=== PATIENT | female | born 1965 | race American Indian/Alaskan Native ===

== ENCOUNTER 2017-03-24 07:23 | Emergency (ER) | payer BC, OTHER ==
[2017-03-24 11:39] LABS: Bacteria,Urine 1+ /HPF (Negative); Bilirubin,Urine NEG (Negative); Blood,Urine NEG (Negative); Color,Urine Yellow (Yellow); Mucus,Urine FEW /HPF; Nitrite,Urine NEG (Negative); Protein,Urine <15 mg/dL mg/dL (Negative); Urobilinogen,Urine < 2.0 mg/dL (<2.0)
--- NOTE | 2017-03-24 11:45 | Cat Scan Report ---
CT HEAD WITHOUT CONTRAST: 03/24/17 07:23:00 CLINICAL: Neck stiffness and headache. Recent URI.. TECHNIQUE: 2.5-mm noncontrast scans. COMPARISON:None FINDINGS: The ventricles and sulci are normal for age.Left frontal lobe white matter and left basal ganglia subtle hypodensities. No other abnormal signal. No mass or mass effect. No hemorrhage, edema or extra-axial collection. Moderate left maxillary sinus mucoperiosteal thickening. Sinuses are otherwise clear. Normal orbits and soft tissues. The calvarium and skull base are intact. IMPRESSION: Probable chronic left frontal lobe white matter and left basal ganglia microvascular ischemic change. Mild left maxillary sinusitis. No other acute change.
[2017-03-24 11:47] LABS: Basophils # (Auto) 0.1 K/mm3 (0.0-0.1); Basophils % (Auto) 0.9 % (0.0-1.8); Eosinophils # (Auto) 0.1 K/mm3 (0.0-0.4); Eosinophils % (Auto) 1.4 % (0.0-4.3); Hematocrit 40.4 % (30.3-42.9); Hemoglobin 13.4 gm/dl (10.1-14.3); Lymphocytes # (Auto) 2.5 K/mm3 (1.2-5.4); Lymphocytes % (Auto) 38.2 % (13.4-35.0); Mean Corpuscular HGB Conc 33 % (30-34); Mean Corpuscular Hemoglobin 32 pg (28-32); Mean Corpuscular Volume 96 fl (79-97); Monocytes # (Auto) 0.3 K/mm3 (0.0-0.8); Monocytes % (Auto) 4.5 % (0.0-7.3); Platelet Count 327 K/mm3 (140-440); Red Blood Count 4.19 M/mm3 (3.65-5.03); Red Cell Distribution Width 13.3 % (13.2-15.2)
--- NOTE | 2017-03-24 11:56 | Emergency Department Report ---
HPI - General Chief Complaint: Neck Pain/Injury Time Seen by Provider: 03/24/17 11:13 - HPI HPI: 52-year-old -[place] female comes in for complaint of neck pain 2-3 days that is starting to gradually increase her she cannot move her neck without excruciating pain. Patient reports that is sharp and increased with movement to the right or the left. She recently had the flu last week and still has a cough. She admits that she has chills no fever headache. She denies any recent injuries or trauma. She is currently on amoxicillin for upper respiratory infection. ED Past Medical Hx - Past Medical History Hx Diabetes: Yes - Social History Smoking Status: Never Smoker Substance Use Type: None - Medications Home Medications: Home Medications Medication Instructions Recorded Confirmed Last Taken Type metFORMIN [Glucophage] 500 mg PO BID 10/08/13 10/08/13 Unknown History Baclofen [Lioresal] 10 mg PO TID #30 tab 03/24/17 Unknown Rx Ibuprofen 600 mg PO Q8H #30 tablet 03/24/17 Unknown Rx Nitrofurantoin Monohyd/M-Cryst 100 mg PO BID 10 Days #20 capsule 03/24/17 Unknown Rx [Macrobid 100 mg Capsule] ED Review of Systems ROS: Stated complaint: STIFF NECK Other details as noted in HPI Constitutional: chills. denies: fever Eyes: denies: eye pain, eye discharge, vision change ENT: denies: ear pain, throat pain Respiratory: cough Cardiovascular: denies: chest pain, palpitations Endocrine: no symptoms reported Gastrointestinal: denies: abdominal pain, nausea, diarrhea Genitourinary: denies: urgency, dysuria, discharge Musculoskeletal: arthralgia (neck pain), myalgia (neck stiffness), other Skin: denies: rash, lesions Neurological: headache Psychiatric: denies: anxiety, depression Hematological/Lymphatic: denies: easy bleeding, easy bruising Physical Exam - Physical Exam Vital Signs: Vital Signs 03/24/17 03/24/17 08:18 08:26 Temperature 98.0 F 98.0 F Pulse Rate 64 64 Respiratory 18 Rate Blood Pressure 158/70 Blood Pressure 158/64 [Right] O2 Sat by Pulse 100 100 Oximetry General: GENERAL APPEARANCE: Well developed, well nourished, in no acute distress. SKIN: Inspection of the skin reveals no rashes, ulcerations or petechiae. HEENT: The sclerae were anicteric and conjunctivae were pink and moist. Extraocular movements were intact and pupils were equal, round, and reactive to light with normal accommodation. External inspection of the ears and nose showed no scars, lesions, or masses. Lips, teeth, and gums showed normal mucosa. The oral mucosa, hard and soft palate, tongue and posterior pharynx were normal. NECK: Supple and symmetric. There was no thyroid enlargement, and no tenderness , or masses were felt. Decreased range of motion secondary to pain. CHEST: Normal AP diameter and normal contour without any kyphoscoliosis. LUNGS: Auscultation of the lungs revealed normal breath sounds without any other adventitious sounds or rubs. CARDIOVASCULAR: There was a regular rate and rhythm without any murmurs, gallops , rubs. The carotid pulses were normal and 2+ bilaterally without bruits. Peripheral pulses were 2+ and symmetric. LYMPH NODES: No lymphadenopathy was appreciated in the neck, axillae or groin. MUSCULOSKELETAL: Gait was normal. There was no tenderness or effusions noted. Muscle strength and tone were normal. EXTREMITIES: No cyanosis, clubbing or edema. NEUROLOGIC: Alert and oriented x 3. Normal affect. Gait was normal. Normal deep tendon reflexes with no pathological reflexes. Sensation to touch was normal. With lifting legs pain and neck ED Course Vital Signs 03/24/17 03/24/17 08:18 08:26 Temperature 98.0 F 98.0 F Pulse Rate 64 64 Respiratory 18 Rate Blood Pressure 158/70 Blood Pressure 158/64 [Right] O2 Sat by Pulse 100 100 Oximetry ED Medical Decision Making - Lab Data Result diagrams: 03/24/17 11:14 03/24/17 11:14 - Radiology Data Radiology results: report reviewed, image reviewed FINDINGS: The ventricles and sulci are normal for age.Left frontal lobe white matter and left basal ganglia subtle hypodensities. No other abnormal signal. No mass or mass effect. No hemorrhage, edema or extra-axial collection. Moderate left maxillary sinus mucoperiosteal thickening. Sinuses are otherwise clear. Normal orbits and soft tissues. The calvarium and skull base are intact. IMPRESSION: Probable chronic left frontal lobe white matter and left basal ganglia microvascular ischemic change. Mild left maxillary sinusitis. No other acute change. Transcribed By: REF Dictated By: AARON SANCHEZ MD Electronically Authenticated By: AARON SANCHEZ MD Signed Date/Time: 03/24/17 1139 DD/ TD/TT: 03/24/17 113 - Medical Decision Making Patient has been evaluated by this provider fast track. CT was ordered for head as well as the neck. CBC CMP lactic acid. Pain medication ordered. Case was discussed with Dr. Silva. He reviewed CT results. Critical care attestation.: If time is entered above; I have spent that time in minutes in the direct care of this critically ill patient, excluding procedure time. ED Disposition Clinical Impression: Cervical adenopathy, Neck pain, acute UTI (urinary tract infection) Qualifiers: Urinary tract infection type: site unspecified Hematuria presence: without hematuria Qualified Code(s): N39.0 - Urinary tract infection, site not specified Disposition: TO HOME OR SELFCARE Is pt being admited?: No Does the pt Need Aspirin: No Condition: Stable Instructions: Urinary Tract Infection in Women (ED), Lymphadenopathy (ED) Additional Instructions: Please take medication as prescribed. Follow up with her primary care provider within 3-5 days. Please return to the emergency room if he spiked a fever. Please return to the emergency room if symptoms persist or gets worse. Prescriptions: Baclofen [Lioresal] 10 mg PO TID #30 tab Ibuprofen 600 mg PO Q8H #30 tablet Nitrofurantoin Monohyd/M-Cryst [Macrobid 100 mg Capsule] 100 mg PO BID 10 Days # 20 capsule Referrals: KALEB MCCORMACK MD [Primary Care Provider] - 3-5 Days Forms: Work/School Release Form(ED)
[2017-03-24] MEDS ORDERED: TORADOL IV ONE (12:01)
[2017-03-24 12:08] LABS: Alanine Aminotransferase 29 units/L (7-56); Albumin 4.6 g/dL (3.9-5); BUN/Creatinine Ratio 15; Blood Urea Nitrogen 9 mg/dL (7-17); Calcium 9.7 mg/dL (8.4-10.2); Hemolysis Index 40
--- NOTE | 2017-03-24 12:22 | Cat Scan Report ---
CT CERVICAL SPINE WITHOUT CONTRAST:03/24/17 07:23:00 CLINICAL: Neck pain stiffness. TECHNIQUE: Volumetric acquisition and 1.25-mm scan reconstructions without contrast. Sagittal and coronal reformats were performed. FINDINGS: Normal vertebral body height, alignment and disk spaces. No fracture or subluxation. No apparent disc protrusions or bulges. Bilateral shotty cervical chain lymph nodes. No abscess or fluid collection. Normal airway. Normal mastoid air cells. IMPRESSION: Bilateral shotty cervical chain lymph nodes and otherwise normal study.
[2017-03-24 13:48] VITALS: BP 140/80
== END 2017-03-24 13:49 | disposition home or self-care (01) ==
LOC: ED 07:23
DX: R59.0 Localized enlarged lymph nodes (principal); M54.2 Cervicalgia; N39.0 Urinary tract infection, site not specified; E11.9 Type 2 diabetes mellitus without complications
CPT/HCPCS: 36415; 70450; 72125; 80053; 81001; 82140; 85025; 96374; 99284; J1885

== ENCOUNTER 2017-03-26 08:30 | Emergency (ER) | payer BC ==
[2017-03-26] MEDS ORDERED: NACL 0.9% 1000 ML 1,000 ML IV ONE (13:01)
[2017-03-26] MEDS ORDERED: TORADOL IV ONE (13:01)
[2017-03-26] MEDS ORDERED: ZOFRAN IV ONE (13:01)
[2017-03-26] MEDS ORDERED: MORPHINE IV ONE (13:01)
--- NOTE | 2017-03-26 13:08 | Emergency Department Report ---
<RAFAELA GILBERT - Last Filed: 03/26/17 20:02> ED Headache HPI - General Chief Complaint: Headache Stated Complaint: NECK PAIN Time Seen by Provider: 03/26/17 12:50 Source: patient, old records Exam Limitations: no limitations - History of Present Illness Initial Comments: 52-year-old female with a past medical history diabetes presents complaining of persistent posterior neck pain and now a posterior headache. Patient has had posterior neck pain since 14 presented to the ER on March 24. She had a CT head and cervical spine performed. Her diagnosis was pain, UTI, cervical adenopathy. Patient reports prior to presented to the ER she is being treated with amoxicillin for URI/flu symptoms. She denies any current fever but has had intermittent chills. Posterior neck pain and posterior headache are sharp, stabbing, constant, worse with palpation and movement. Positive photophobia. Positive nausea. No vomiting. Patient take ibuprofen and baclofen without improvement. Also currently on Macrobid for recently diagnosed UTI. Pt developed chest pain while in ed Allergies/Adverse Reactions: Allergies No Known Allergies Allergy (Verified 10/08/13 22:40) Home Medications: Ambulatory Orders metFORMIN [Glucophage] 500 mg PO BID 10/08/13 Baclofen [Lioresal] 10 mg PO TID #30 tab 03/24/17 Ibuprofen 600 mg PO Q8H #30 tablet 03/24/17 Nitrofurantoin Monohyd/M-Cryst [Macrobid 100 mg Capsule] 100 mg PO BID 10 Days # 20 capsule 03/24/17 HYDROcodone/APAP 5-325 [[place] 5/325] 1 each PO Q6HR PRN #20 tablet 03/26/17 Ondansetron [Zofran Odt] 4 mg PO Q8HR PRN #20 tab.rapdis 03/26/17 ED Review of Systems ROS: Stated complaint: NECK PAIN Other details as noted in HPI Comment: All other systems reviewed and negative Other: Constitutional: as per hpi Eyes: No eye pain visual changes or discharge ENT: No ear pain or throat pain Neck: as per hpi Respiratory: Denies cough wheezing shortness of breath Cardiovascular: Denies chest pain, palpitations, syncope GI: Denies abdominal pain, nausea, vomiting, diarrhea : Denies dysuria Musculoskeletal: Denies back pain Skin: Denies rash, lesions, erythema Neurologic: Denies headache, numbness, weakness Psychiatric: Denies suicidal ideation, hallucinations ED Past Medical Hx - Past Medical History Previous Medical History?: Yes Hx Diabetes: Yes - Surgical History Past Surgical History?: No - Social History Smoking Status: Never Smoker Substance Use Type: None - Medications Home Medications: Home Medications Medication Instructions Recorded Confirmed Last Taken Type metFORMIN [Glucophage] 500 mg PO BID 10/08/13 03/26/17 Unknown History Baclofen [Lioresal] 10 mg PO TID #30 tab 03/24/17 03/26/17 Unknown Rx Ibuprofen 600 mg PO Q8H #30 tablet 03/24/17 03/26/17 Unknown Rx Nitrofurantoin Monohyd/M-Cryst 100 mg PO BID 10 Days #20 capsule 03/24/17 Unknown Rx [Macrobid 100 mg Capsule] HYDROcodone/APAP 5-325 [[place] 1 each PO Q6HR PRN #20 tablet 03/26/17 Unknown Rx 5/325] Ondansetron [Zofran Odt] 4 mg PO Q8HR PRN #20 tab.rapdis 03/26/17 Unknown Rx ED Physical Exam - General Limitations: No Limitations - Other Other exam information: General: No limitations, patient is alert in no acute distress Head exam: Atraumatic, normocephalic Eyes exam: Normal appearance, pupils equal reactive to light, extraocular movements intact ENT: Moist mucous membrane, no posterior exudate Neck exam: Normal inspection, full range of motion, posterior neck pain with tenderness to the bilateral paraspinal muscles. Pain with flexion and extension of neck Respiratory exam: Clear to auscultation bilateral, no wheezes, rales, crackles Cardiovascular: Normal rate and rhythm Abdomen: Soft, nondistended, and nontender, with normal bowel sounds, no rebound, or guarding Extremity: Full range of motion normal inspection no deformity Back: Normal Inspection, full range of motion, no tenderness Neurologic: Alert, oriented x3, cranial nerves intact, no motor or sensory deficit Psychiatric: normal affect, normal mood Skin: Warm, dry, intact ED Course Vital Signs 03/26/17 03/26/17 03/26/17 08:49 12:56 15:48 Temperature 98.3 F Pulse Rate 72 67 70 Respiratory 16 16 16 Rate Blood Pressure 127/97 Blood Pressure 163/84 114/78 [Left] O2 Sat by Pulse 98 93 100 Oximetry 03/26/17 03/26/17 03/27/17 17:40 19:43 00:57 Temperature Pulse Rate 76 97 H Respiratory 16 18 18 Rate Blood Pressure Blood Pressure 138/76 123/76 [Left] O2 Sat by Pulse 100 99 Oximetry 03/27/17 03/27/17 02:26 02:27 Temperature Pulse Rate Respiratory 18 18 Rate Blood Pressure Blood Pressure 134/79 [Left] O2 Sat by Pulse Oximetry - Reevaluation(s) Reevaluation #1: 03/26/17 19:48 Pt received Morphine, toradol, zofran with mild improvement, pain improved further after Dilaudid 1mg Reevaluation #2: 03/26/17 19:49 at this time still awaiting ct a results Mri pending will need to sign out pt - Consultations Consultation #1: 03/26/17 Case was discussed with Dr. Ray until neurologist requisition approver recommended it MRI head and neck in addition to the CTA that was performed. If unremarkable bruits the LP may be necessary. ED Medical Decision Making - Lab Data Result diagrams: 03/26/17 13:45 03/26/17 13:45 Lab Results 03/26/17 03/26/17 03/26/17 Range/Units 13:45 13:45 13:45 WBC 7.6 (4.5-11.0) K/mm3 RBC 3.96 (3.65-5.03) M/mm3 Hgb 12.4 (10.1-14.3) gm/dl Hct 37.9 (30.3-42.9) % MCV 96 (79-97) fl MCH 31 (28-32) pg MCHC 33 (30-34) % RDW 13.5 (13.2-15.2) % Plt Count 325 (140-440) K/mm3 Lymph % (Auto) 33.4 (13.4-35.0) % [place] % (Auto) 5.8 (0.0-7.3) % Eos % (Auto) 1.2 (0.0-4.3) % Baso % (Auto) 0.5 (0.0-1.8) % Lymph # 2.5 (1.2-5.4) K/mm3 [place] # 0.4 (0.0-0.8) K/mm3 Eos # 0.1 (0.0-0.4) K/mm3 Baso # 0.0 (0.0-0.1) K/mm3 Seg Neutrophils % 59.1 (40.0-70.0) % Seg Neutrophils # 4.5 (1.8-7.7) K/mm3 PT 12.9 (12.2-14.9) Sec. INR 0.93 (0.87-1.13) APTT 36.9 H (24.2-36.6) Sec. Sodium 139 (137-145) mmol/L Potassium 4.3 (3.6-5.0) mmol/L Chloride 99.5 (98-107) mmol/L Carbon Dioxide 27 (22-30) mmol/L Anion Gap 17 mmol/L BUN 9 (7-17) mg/dL Creatinine 0.6 L (0.7-1.2) mg/dL Estimated GFR > 60 ml/min BUN/Creatinine Ratio 15 % Glucose 104 H (65-100) mg/dL POC Glucose (70-105) Calcium 9.1 (8.4-10.2) mg/dL 03/26/17 03/26/17 Range/Units 16:06 19:17 WBC (4.5-11.0) K/mm3 RBC (3.65-5.03) M/mm3 Hgb (10.1-14.3) gm/dl Hct (30.3-42.9) % MCV (79-97) fl MCH (28-32) pg MCHC (30-34) % RDW (13.2-15.2) % Plt Count (140-440) K/mm3 Lymph % (Auto) (13.4-35.0) % [place] % (Auto) (0.0-7.3) % Eos % (Auto) (0.0-4.3) % Baso % (Auto) (0.0-1.8) % Lymph # (1.2-5.4) K/mm3 [place] # (0.0-0.8) K/mm3 Eos # (0.0-0.4) K/mm3 Baso # (0.0-0.1) K/mm3 Seg Neutrophils % (40.0-70.0) % Seg Neutrophils # (1.8-7.7) K/mm3 PT (12.2-14.9) Sec. INR (0.87-1.13) APTT (24.2-36.6) Sec. Sodium (137-145) mmol/L Potassium (3.6-5.0) mmol/L Chloride (98-107) mmol/L Carbon Dioxide (22-30) mmol/L Anion Gap mmol/L BUN (7-17) mg/dL Creatinine (0.7-1.2) mg/dL Estimated GFR ml/min BUN/Creatinine Ratio % Glucose (65-100) mg/dL POC Glucose 76 99 (70-105) Calcium (8.4-10.2) mg/dL - EKG Data -: EKG Interpreted by Me EKG shows normal: sinus rhythm, axis (33), QRS complexes (83), ST-T waves (no stemi/t inv) Rate: bradycardia (59) - Radiology Data Radiology results: report reviewed Previous CTs reviewed (03/24/17) CT head without contrast, probable chronic left frontal lobe white matter and left phasic microvascular ischemic changes. Mild left maxillary sinusitis Cervical spine: Bilateral shotty cervical lymph nodes otherwise normal cta head/neck pending MRI c spine: No apparent disc bulge, protrusion or significant central spinal canal compromise MRI head: No acute findings. Sinus may represent chronic ischemic changes versus demyelinating disease. - Medical Decision Making Headache neck pain will need to s/o pt for LP if imaging studies do not see pathology Dr Munoz to f/u results May re consult neurology Dr Ray - Differential Diagnosis sah, tumor, tension leung, meningitis, leung nos, disection vetebral artery Critical Care Time: No Critical care attestation.: If time is entered above; I have spent that time in minutes in the direct care of this critically ill patient, excluding procedure time. ED Disposition Clinical Impression: Neck pain, Pseudotumor cerebri, Neck pain, acute Headache Qualifiers: Headache type: unspecified Headache chronicity pattern: acute headache Intractability: intractable Qualified Code(s): R51 - Headache Intractable headache Qualifiers: Headache type: unspecified Headache chronicity pattern: acute headache Qualified Code(s): R51 - Headache Disposition: DC/TX-70 ANOTHER TYPE HLTHCARE Condition: Critical Prescriptions: HYDROcodone/APAP 5-325 [[place] 5/325] 1 each PO Q6HR PRN #20 tablet PRN Reason: Pain Ondansetron [Zofran Odt] 4 mg PO Q8HR PRN #20 tab.rapdis PRN Reason: Nausea And Vomiting Referrals: PRIMARY CARE,MD [Primary Care Provider] - 3-5 Days <EASTON HINES - Last Filed: 03/27/17 03:30> ED Medical Decision Making - Lab Data Result diagrams: 03/26/17 13:45 03/26/17 13:45 Critical Care Time: Yes Critical care time in (mins) excluding proc time.: 120 Critical care attestation.: If time is entered above; I have spent that time in minutes in the direct care of this critically ill patient, excluding procedure time. josé luis Critical Care Time: 120 min ED Disposition Is pt being admited?: Yes Time of Disposition: 03:24 (Dr. De La Paz, neurologist, from [facility] has accepted the patient. Patient will be transferred to the ICU with bradycardia.)
[2017-03-26 14:22] LABS: Basophils % (Auto) 0.5 % (0.0-1.8); Eosinophils # (Auto) 0.1 K/mm3 (0.0-0.4); Eosinophils % (Auto) 1.2 % (0.0-4.3); Hematocrit 37.9 % (30.3-42.9); Hemoglobin 12.4 gm/dl (10.1-14.3); Lymphocytes # (Auto) 2.5 K/mm3 (1.2-5.4); Lymphocytes % (Auto) 33.4 % (13.4-35.0); Mean Corpuscular HGB Conc 33 % (30-34); Mean Corpuscular Hemoglobin 31 pg (28-32); Mean Corpuscular Volume 96 fl (79-97); Monocytes # (Auto) 0.4 K/mm3 (0.0-0.8); Monocytes % (Auto) 5.8 % (0.0-7.3); Platelet Count 325 K/mm3 (140-440); Red Blood Count 3.96 M/mm3 (3.65-5.03); Red Cell Distribution Width 13.5 % (13.2-15.2)
[2017-03-26 14:34] LABS: INR 0.93 (0.87-1.13)
[2017-03-26 14:35] LABS: Partial Thromboplastin Time 36.9 Sec. (24.2-36.6)
[2017-03-26 14:44] LABS: BUN/Creatinine Ratio 15; Blood Urea Nitrogen 9 mg/dL (7-17); Calcium 9.1 mg/dL (8.4-10.2); Hemolysis Index 6
[2017-03-26] MEDS ORDERED: DILAUDID IV ONE (17:53)
[2017-03-26] MEDS ORDERED: DILAUDID ONE (17:53)
--- NOTE | 2017-03-26 19:53 | Magnetic Resonance Report ---
FINAL REPORT EXAM: MR BRAIN WO/W CON HISTORY: headache and neck pain TECHNIQUE: Multiplanar MRI of the brain. 15 mL MultiHance IV. PRIORS: CT brain, 24 March 2017. FINDINGS: Brain volume is normal for age. Mild, patchy foci of T2 and FLAIR bright signal in the periventricular and subcortical white matter are nonspecific, but may relate to chronic small vessel ischemic change versus demyelinating disease. No acute infarct seen on diffusion-weighted imaging. No parenchymal mass, mass-effect, hemorrhage, midline shift or hydrocephalus. No pathologic extra-axial fluid collection. No pineal region or sellar masses. No cerebellar tonsillar herniation. No abnormal enhancement. Marginal mucosal thickening in the ethmoid and left maxillary sinuses. IMPRESSION: 1. No acute intracranial findings. 2. Findings which may represent chronic ischemic changes versus demyelinating disease. Correlate clinically.
--- NOTE | 2017-03-26 19:58 | Magnetic Resonance Report ---
FINAL REPORT EXAM: MR CERVICAL SPINE WO/W CON HISTORY: headache and neck pain TECHNIQUE: Multiplanar MRI of cervical spine. 15 mL MultiHance IV. PRIORS: CT cervical spine, 24 March 2017. FINDINGS: Normal alignment, height and signal intensity of cervical vertebral bodies. Cervical spinal cord has normal contour and signal intensity. No cerebellar tonsillar herniation. No abnormal enhancement. C2-C3 through C7-T1: No apparent disc bulge or protrusion. No significant central spinal stenosis or neural foraminal narrowing. IMPRESSION: 1. No apparent disc bulge, protrusion or significant central spinal canal compromise.
--- NOTE | 2017-03-26 20:04 | Cat Scan Report ---
FINAL REPORT EXAM: CT ANGIO HEAD HISTORY: leung, neck pain TECHNIQUE: Spiral CTA of brain after the uneventful administration of IV contrast. Multiplanar reformations. PRIORS: CT brain, 24 March 2017. FINDINGS: Normal enhancement of the basilar and bilateral internal carotid arteries and their main intracranial branches. No abnormal aneurysmal dilatation, significant stenosis or apparent occlusion. No parenchymal mass, hemorrhage, midline shift or hydrocephalus. No evidence of acute cortical infarct. No abnormal extra-axial fluid or air collections. No pathologic enhancement. Osseous calvarium grossly intact. Marginal mucosal thickening in the ethmoid and left maxillary sinuses. IMPRESSION: 1. No acute intracranial findings.
--- NOTE | 2017-03-26 20:13 | Cat Scan Report ---
FINAL REPORT EXAM: CT ANGIO NECK HISTORY: leung, neck pain TECHNIQUE: Spiral CTA of the neck after the uneventful administration of IV contrast. Multiplanar reformations. PRIORS: None. FINDINGS: Normal enhancement of the bilateral CCAs, ICAs and ECAs. No abnormal aneurysmal dilatation, apparent dissection, significant stenosis or occlusion. Vertebral arteries are patent and symmetric. Ovoid and well-circumscribed, soft tissue density in the left upper anterior mediastinum measuring approximately 2.8 x 1.8 cm in maximal cross-sectional diameter, nonspecific. No other focal abnormalities. IMPRESSION: 1. No significant stenosis. 2. Ovoid soft tissue density in left upper anterior mediastinum may be of thymic origin or thymoma, enlarged lymph node or teratoma. Exact etiology uncertain, and clinical correlation along with followup to resolution advised.
[2017-03-26] MEDS ORDERED: SUBLIMAZE ONE (23:28)
[2017-03-27 00:21] LABS: Glucose,CSF 76 mg/dL
--- NOTE | 2017-03-27 00:27 | Emergency Department Report ---
ED Headache HPI - General Chief Complaint: Headache Stated Complaint: NECK PAIN Time Seen by Provider: 03/26/17 12:50 - History of Present Illness Initial Comments: Patient with a headache since Sunday but especially today. I spoke with Dr. Ray the telemetry neurologist who despite the negative CT of the head and neck and MRI of the head ,wanted the lumbar puncture to be done. The history and physical of this patient is on the chart with Dr. Bae initially seeing the patient Timing/Duration: constant Quality: severe Head Injury Location: occipital Recent Head Trauma: no recent headache/trauma Allergies/Adverse Reactions: Allergies No Known Allergies Allergy (Verified 10/08/13 22:40) Home Medications: Ambulatory Orders metFORMIN [Glucophage] 500 mg PO BID 10/08/13 Baclofen [Lioresal] 10 mg PO TID #30 tab 03/24/17 Ibuprofen 600 mg PO Q8H #30 tablet 03/24/17 Nitrofurantoin Monohyd/M-Cryst [Macrobid 100 mg Capsule] 100 mg PO BID 10 Days # 20 capsule 03/24/17 HYDROcodone/APAP 5-325 [[place] 5/325] 1 each PO Q6HR PRN #20 tablet 03/26/17 Ondansetron [Zofran Odt] 4 mg PO Q8HR PRN #20 tab.rapdis 03/26/17 ED Review of Systems ROS: Stated complaint: NECK PAIN Other details as noted in HPI ED Past Medical Hx - Past Medical History Previous Medical History?: Yes Hx Diabetes: Yes - Surgical History Past Surgical History?: No - Social History Smoking Status: Never Smoker Substance Use Type: None - Medications Home Medications: Home Medications Medication Instructions Recorded Confirmed Last Taken Type metFORMIN [Glucophage] 500 mg PO BID 10/08/13 03/26/17 Unknown History Baclofen [Lioresal] 10 mg PO TID #30 tab 03/24/17 03/26/17 Unknown Rx Ibuprofen 600 mg PO Q8H #30 tablet 03/24/17 03/26/17 Unknown Rx Nitrofurantoin Monohyd/M-Cryst 100 mg PO BID 10 Days #20 capsule 03/24/17 Unknown Rx [Macrobid 100 mg Capsule] HYDROcodone/APAP 5-325 [[place] 1 each PO Q6HR PRN #20 tablet 03/26/17 Unknown Rx 5/325] Ondansetron [Zofran Odt] 4 mg PO Q8HR PRN #20 tab.rapdis 03/26/17 Unknown Rx ED Physical Exam - General Limitations: No Limitations ED Course Vital Signs 03/26/17 03/26/17 03/26/17 08:49 12:56 15:48 Temperature 98.3 F Pulse Rate 72 67 70 Respiratory 16 16 16 Rate Blood Pressure 127/97 Blood Pressure 163/84 114/78 [Left] O2 Sat by Pulse 98 93 100 Oximetry 03/26/17 03/26/17 03/27/17 17:40 19:43 00:57 Temperature Pulse Rate 76 97 H Respiratory 16 18 18 Rate Blood Pressure Blood Pressure 138/76 123/76 [Left] O2 Sat by Pulse 100 99 Oximetry 03/27/17 03/27/17 02:26 02:27 Temperature Pulse Rate Respiratory 18 18 Rate Blood Pressure Blood Pressure 134/79 [Left] O2 Sat by Pulse Oximetry - Reevaluation(s) Reevaluation #1: 03/27/17 03:07 Dr. Sosa neurologists with patient the review CSF fluid results was discussed with her. She wants the patient transferred to a facility that has neurology and ophthalmology. She will use patient might have pseudotumor cerebri. He did not have ophthalmology here we will be seeking a place for her to go with ophthalmology and neurology. Reevaluation #2: 03/27/17 03:15 Transfer center at [facility]. They are paging a neurologist to discuss the case and potentially admit her to their facility. 03/27/17 03:29 The the opening pressure of the patient exceeded the column for measuring pressure it was about 55 so I had to quickly close off the stock. - Lumbar Puncture Consent Obtained: verbal consent Time Out Performed: Yes Indication for Procedure: headache Patient Position: Sitting Upright/Leaning F Skin Prep: Povidone-Iodine 1% Local Anesthetic Used: Lidocaine 2% Amount of anesthesia used (mls): 3 Spinal Needle Length: 3.5in Interspace Used: L3-L4 Fluid Initially Obtained: clear Complications: none Patient Tolerated Procedure: well ED Medical Decision Making - Lab Data Result diagrams: 03/26/17 13:45 03/26/17 13:45 - Radiology Data Radiology results: report reviewed (and flare bright signal periventricular and subcortical white matter area) Critical care attestation.: If time is entered above; I have spent that time in minutes in the direct care of this critically ill patient, excluding procedure time. ED Disposition Clinical Impression: Neck pain, Pseudotumor cerebri, Neck pain, acute Headache Qualifiers: Headache type: unspecified Headache chronicity pattern: acute headache Intractability: intractable Qualified Code(s): R51 - Headache Intractable headache Qualifiers: Headache type: unspecified Headache chronicity pattern: acute headache Qualified Code(s): R51 - Headache Disposition: DC/TX-70 ANOTHER TYPE HLTHCARE Is pt being admited?: Yes Condition: Critical Prescriptions: HYDROcodone/APAP 5-325 [[place] 5/325] 1 each PO Q6HR PRN #20 tablet PRN Reason: Pain Ondansetron [Zofran Odt] 4 mg PO Q8HR PRN #20 tab.rapdis PRN Reason: Nausea And Vomiting Referrals: PRIMARY CARE,MD [Primary Care Provider] - 3-5 Days Time of Disposition: 03:28 (Dr. Emi Casillas from [facility] has accepted the patient. She is a neurologist. She will be transferred to the ICU at [facility].)
[2017-03-27] MEDS ORDERED: SUBLIMAZE IV ONE (00:38)
[2017-03-27 02:27] VITALS: BP 134/79
[2017-03-27 02:40] LABS: Total Cells Counted 52 /mm3
[2017-03-27 02:41] LABS: Appearance,CSF Clear; Basophils CSF 0 %; Red Blood Cell,CSF 183 /mm3 (0-0); White Blood Cell,CSF 1 /mm3 (1-10)
[2017-03-27 02:50] LABS: Appearance,CSF Clear; Total Cells Counted 88 /mm3
[2017-03-27 02:51] LABS: Basophils CSF 0 %; Red Blood Cell,CSF 377 /mm3 (0-0); White Blood Cell,CSF 2 /mm3 (1-10)
== END 2017-03-27 07:20 | disposition other institution (70) ==
LOC: ED 08:30
DX: G93.2 Benign intracranial hypertension (principal); R51 Headache; M54.2 Cervicalgia; E11.9 Type 2 diabetes mellitus without complications
CPT/HCPCS: 36415; 62270; 70496; 70498; 70553; 72156; 80048; 82947; 82962; 83873; 83916; 84160; 84305; 85025; 85610; 85730; 86403; 87116; 87400; 87430; 89051; 93005; 93010; 96361; 96374; 96375; 99291; 99292; A9577; J1170; J1885; J2270; J2405; J3010; J7030; Q9967